=== PATIENT | female | born 1975 | race African-American/Black ===

== ENCOUNTER 2018-03-16 16:52 | Emergency (ER) | payer MEDICAID ==
[~2018-03-16] VITALS: Ht 170.2 cm; Wt 105.0 kg
[2018-03-16] MEDS ORDERED: ASPIRIN 81MG TABLET PO ONE (20:45)
[2018-03-16 21:02] LABS: BASOPHILS % 0.4 % (0.0-2.0); EOSINOPHILS % 0.2 % (0.0-5.0); HEMATOCRIT. 35.6 % (36.0-48.0); HEMOGLOBIN. 11.8 g/dL (12.0-16.0); LYMPHOCYTES % 37.5 % (20.0-50.0); MEAN CORPUSCULAR HEMOGLOBIN 30.2 pg (28.0-32.0); MEAN CORPUSCULAR VOLUME 91.3 fL (81.0-99.0); MEAN PLATELET VOLUME 7.3 fl (7.4-10.4); MONOCYTES % 5.7 % (2.0-8.0); NEUTROPHILS % 56.2 % (40.0-76.0); PLATELET 236 x1000/uL (130-400); RED CELL DISTRIBUTION WIDTH 14.5 % (11.6-14.6)
[2018-03-16 21:06] LABS: CHLORIDE 97 mEq/L (98-107)
[2018-03-16 21:33] VITALS: BP 161/90
[2018-03-16 22:09] LABS: *AMPHETAMINES SCREEN URINE NEGATIVE (NEGATIVE); *BARBITURATES SCREEN URINE NEGATIVE (NEGATIVE); *BENZODIAZEPINES SCREEN URINE NEGATIVE (NEGATIVE); *COCAINE SCREEN URINE NEGATIVE (NEGATIVE); METHADONE URINE SCREEN NEGATIVE (NEGATIVE)
[2018-03-16 22:10] LABS: CANNABINOID URINE SCREEN NEGATIVE (NEGATIVE); OPIATES URINE SCREEN NEGATIVE (NEGATIVE); PHENCYCLIDINE URINE SCREEN NEGATIVE (NEGATIVE)
== END 2018-03-16 21:36 | disposition left against medical advice (07) ==
LOC: ER 16:52
DX: R07.89 Other chest pain (principal); I11.0 Hypertensive heart disease with heart failure; R73.9 Hyperglycemia, unspecified
CPT/HCPCS: 36415; 71045; 80053; 80305; 81025; 83880; 84484; 85025; 85610; 93005; 99285